=== PATIENT | male | born 1945 | race Caucasian/White ===

== ENCOUNTER 2023-04-20 13:22 | Inpatient (IN) | payer MEDICARE, MEDICAID ==
[2023-04-20 13:45] LABS: BASOPHILS ABSOLUTE AUTO 0.07 10^3/uL (0.00-0.50); BASOPHILS PERCENT AUTO 0.5 % (0-1); EOSINOPHILS ABSOLUTE AUTO 0.61 10^3/uL (0.00-1.50); EOSINOPHILS PERCENT AUTO 4.6 % (0-6); HEMATOCRIT 36.8 % (42.0-52.0); HEMOGLOBIN 12.5 g/dL (14.0-18.0); IMMATURE GRAN ABSOLUTE AUTO 0.04 10^3/uL (0.00-0.49); IMMATURE GRAN PERCENT AUTO 0.3 % (0.0-4.9); LYMPHOCYTES PERCENT AUTO 10.5 % (24-44); MEAN CORPUSCULAR HEMOGLOBIN 31.6 pg (27.0-32.0); MEAN CORPUSCULAR VOLUME 92.9 fL (83.0-97.0); MONOCYTES PERCENT AUTO 5.3 % (0-10); NEUTROPHILS ABSOLUTE AUTO 10.47 x10^3/uL (1.80-8.00); NEUTROPHILS PERCENT AUTO 78.8 % (41-71); PLATELET COUNT,PLT 462 10^3/uL (150-400); RED BLOOD CELL COUNT 3.96 x10^6/uL (4.50-6.00); WHITE BLOOD CELL COUNT,WBC 13.3 10^3/uL (4.0-11.0)
[2023-04-20 14:18] LABS: BLOOD UREA NITROGEN,BUN 22 mg/dL (7-18); C-REACTIVE PROTEIN 2.02 mg/dL (<=0.50); CARBON DIOXIDE,CO2 31 mmol/L (21-32); CHLORIDE,CL 100 mEq/L (98-106); CREATININE 0.8 mg/dL (0.7-1.3); ESTIMATED GFR 92 mL/min (>=60); GLUCOSE RANDOM 159 mg/dL (75-99); POTASSIUM,K 3.7 mEq/L (3.5-5.0); SODIUM,NA 139 mEq/L (136-145)
[2023-04-20] MEDS ORDERED: Ondansetron 4 MG Tab.DIS PO PRN (14:44)
[2023-04-20] MEDS ORDERED: Acetaminophen 325 MG Tab PO PRN (14:44)
[2023-04-20] MEDS ORDERED: Polyethylene Glycol 3350 Powder 17 GM Packet PO PRN (14:44)
[2023-04-20] MEDS ORDERED: Docusate Sodium 100 MG Cap PO PRN (14:44)
[2023-04-20] MEDS ORDERED: Acetaminophen 650 MG Supp RECTAL PRN (14:44)
[2023-04-20] MEDS ORDERED: Ondansetron 4 MG/2 ML SDV IV PRN (14:44)
[2023-04-20] MEDS ORDERED: Piperacillin/Tazobactam 4.5 GM in Sodium Chloride 0.9% 100 ML IV ONE (14:50)
[2023-04-20] MEDS ORDERED: Albuterol/Ipratropium 3.0-0.5 MG/3 ML Neb Soln NEB PRN (14:50)
[2023-04-20] MEDS ORDERED: Sodium Chloride 0.9% 1,000 ML IV ONE (15:11)
[2023-04-20] MEDS: Albuterol/Ipratropium 3.0-0.5 MG/3 ML Neb Soln NEB SCH ×2 (15:41→19:18)
[2023-04-20] MEDS: Furosemide 40 MG Tab PO SCH (16:05)
[2023-04-20] MEDS ORDERED: Bisacodyl 10 MG Supp RECTAL PRN (17:39)
[2023-04-20] MEDS ORDERED: Sennosides 8.6 MG Tab PO PRN (17:39)
[2023-04-20] MEDS: glipiZIDE 5 MG Tab PO SCH (18:47)
[2023-04-20] MEDS: Tamsulosin 0.4 MG Cap.ER PO SCH (19:17)
[2023-04-20] MEDS: amLODIPine 2.5 MG Tab PO SCH (19:17)
[2023-04-20] MEDS: risperiDONE 1 MG Tab PO SCH (19:17)
[2023-04-20] MEDS: Gabapentin 300 MG Cap PO SCH (19:17)
[2023-04-20] MEDS: atorvaSTATin 20 MG Tab PO SCH (19:17)
[2023-04-20] MEDS: Piperacillin/Tazobactam 4.5 GM in Sodium Chloride 0.9% 100 ML IV SCH (19:18)
[2023-04-20] MEDS: Metoprolol Succinate 25 MG Tab.ER PO SCH (19:18)
[2023-04-20] MEDS: Famotidine 20 MG Tab PO SCH (19:18)
[2023-04-20] MEDS: Acetaminophen 325 MG Tab PO SCH (21:54)
[2023-04-21] MEDS: Piperacillin/Tazobactam 4.5 GM in Sodium Chloride 0.9% 100 ML IV SCH ×3 (03:31→21:10)
[2023-04-21] MEDS: Acetaminophen 325 MG Tab PO SCH ×3 (05:43→21:14)
[2023-04-21 07:13] LABS: BASOPHILS ABSOLUTE AUTO 0.04 10^3/uL (0.00-0.50); BASOPHILS PERCENT AUTO 0.4 % (0-1); EOSINOPHILS ABSOLUTE AUTO 0.53 10^3/uL (0.00-1.50); EOSINOPHILS PERCENT AUTO 5.4 % (0-6); HEMOGLOBIN 10.7 g/dL (14.0-18.0); IMMATURE GRAN ABSOLUTE AUTO 0.03 10^3/uL (0.00-0.49); IMMATURE GRAN PERCENT AUTO 0.3 % (0.0-4.9); LYMPHOCYTES ABSOLUTE AUTO 1.13 10^3/uL (0.60-5.00); LYMPHOCYTES PERCENT AUTO 11.5 % (24-44); MEAN CORPUSCULAR HEMOGLOBIN 31.3 pg (27.0-32.0); MEAN CORPUSCULAR HGB CONC 33.4 g/dL (32.0-36.0); MEAN CORPUSCULAR VOLUME 93.6 fL (83.0-97.0); MONOCYTES ABSOLUTE AUTO 0.64 10^3/uL (0.00-1.50); MONOCYTES PERCENT AUTO 6.5 % (0-10); NEUTROPHILS ABSOLUTE AUTO 7.44 x10^3/uL (1.80-8.00); NEUTROPHILS PERCENT AUTO 75.9 % (41-71); PLATELET COUNT,PLT 387 10^3/uL (150-400); RED BLOOD CELL COUNT 3.42 x10^6/uL (4.50-6.00); WHITE BLOOD CELL COUNT,WBC 9.8 10^3/uL (4.0-11.0)
[2023-04-21 07:23] LABS: BILIRUBIN TOTAL 0.3 mg/dL (0.0-1.0); CALCIUM 8.7 mg/dL (8.4-10.1); EST CRCL DRUG DOSING (CG) 63.39 mL/min; MAGNESIUM 1.6 mg/dL (1.8-2.4); POTASSIUM,K 3.6 mEq/L (3.5-5.0); PROTEIN TOTAL,TP 5.5 g/dL (6.4-8.2)
[2023-04-21] MEDS: risperiDONE 1 MG Tab PO SCH ×2 (07:46→21:15)
[2023-04-21] MEDS: Famotidine 20 MG Tab PO SCH ×2 (07:47→21:14)
[2023-04-21] MEDS: metFORMIN 500 MG Tab PO SCH (07:47)
[2023-04-21] MEDS: DULoxetine 30 MG Cap PO SCH (07:47)
[2023-04-21] MEDS: Metoprolol Succinate 25 MG Tab.ER PO SCH ×2 (07:47→21:11)
[2023-04-21] MEDS: glipiZIDE 5 MG Tab PO SCH ×2 (07:47→17:36)
[2023-04-21] MEDS: Gabapentin 300 MG Cap PO SCH ×2 (07:47→21:14)
[2023-04-21] MEDS: Furosemide 40 MG Tab PO SCH (07:47)
[2023-04-21] MEDS: Albuterol/Ipratropium 3.0-0.5 MG/3 ML Neb Soln NEB SCH ×4 (07:48→21:15)
[2023-04-21] MEDS: Vitamin B Complex Cap PO SCH (07:50)
[2023-04-21] MEDS: Cholecalciferol (Vitamin D3) 25 MCG Tab PO SCH (07:50)
[2023-04-21] MEDS ORDERED: Enoxaparin 40 MG/0.4 ML Syringe SUBCUT SCH (12:00)
[2023-04-21] MEDS: atorvaSTATin 20 MG Tab PO SCH (21:11)
[2023-04-21] MEDS: amLODIPine 2.5 MG Tab PO SCH (21:14)
[2023-04-21] MEDS: Tamsulosin 0.4 MG Cap.ER PO SCH (21:15)
[2023-04-22] MEDS: Piperacillin/Tazobactam 4.5 GM in Sodium Chloride 0.9% 100 ML IV SCH (03:20)
[2023-04-22] MEDS: Acetaminophen 325 MG Tab PO SCH (06:28)
[2023-04-22] MEDS: metFORMIN 500 MG Tab PO SCH (07:43)
[2023-04-22] MEDS: risperiDONE 1 MG Tab PO SCH (07:44)
[2023-04-22] MEDS: DULoxetine 30 MG Cap PO SCH (07:44)
[2023-04-22] MEDS: Famotidine 20 MG Tab PO SCH (07:44)
[2023-04-22] MEDS: Gabapentin 300 MG Cap PO SCH (07:44)
[2023-04-22] MEDS: glipiZIDE 5 MG Tab PO SCH (07:44)
[2023-04-22] MEDS: Furosemide 40 MG Tab PO SCH (07:44)
[2023-04-22] MEDS: Metoprolol Succinate 25 MG Tab.ER PO SCH (07:45)
[2023-04-22] MEDS: Albuterol/Ipratropium 3.0-0.5 MG/3 ML Neb Soln NEB SCH (07:45)
[2023-04-22] MEDS: Vitamin B Complex Cap PO SCH (07:45)
[2023-04-22] MEDS: Cholecalciferol (Vitamin D3) 25 MCG Tab PO SCH (07:54)
[2023-04-22 08:02] LABS: BASOPHILS ABSOLUTE AUTO 0.07 10^3/uL (0.00-0.50); BASOPHILS PERCENT AUTO 0.6 % (0-1); EOSINOPHILS ABSOLUTE AUTO 0.67 10^3/uL (0.00-1.50); HEMATOCRIT 34.8 % (42.0-52.0); HEMOGLOBIN 11.6 g/dL (14.0-18.0); IMMATURE GRAN ABSOLUTE AUTO 0.03 10^3/uL (0.00-0.49); IMMATURE GRAN PERCENT AUTO 0.3 % (0.0-4.9); LYMPHOCYTES ABSOLUTE AUTO 1.61 10^3/uL (0.60-5.00); LYMPHOCYTES PERCENT AUTO 14.3 % (24-44); MEAN CORPUSCULAR HEMOGLOBIN 31.4 pg (27.0-32.0); MEAN CORPUSCULAR HGB CONC 33.3 g/dL (32.0-36.0); MEAN CORPUSCULAR VOLUME 94.1 fL (83.0-97.0); MONOCYTES ABSOLUTE AUTO 0.65 10^3/uL (0.00-1.50); MONOCYTES PERCENT AUTO 5.8 % (0-10); NEUTROPHILS ABSOLUTE AUTO 8.21 x10^3/uL (1.80-8.00); PLATELET COUNT,PLT 422 10^3/uL (150-400); WHITE BLOOD CELL COUNT,WBC 11.2 10^3/uL (4.0-11.0)
[2023-04-22 08:31] LABS: CALCIUM 8.9 mg/dL (8.4-10.1); EST CRCL DRUG DOSING (CG) 63.39 mL/min; MAGNESIUM 1.8 mg/dL (1.8-2.4); POTASSIUM,K 3.9 mEq/L (3.5-5.0)
[2023-04-22 13:27] VITALS: BP 124/54; PULSE 72
== END 2023-04-22 11:25 | disposition home or self-care (01) | DRG 193 ==
LOC: CC.FCMC 13:22 → CC.MS 13:22 → UNDOADMIN 14:35 → CC.MS 14:35
PROVIDERS: ADMIT Nurse Practitioner; ATTEND Nurse Practitioner
DX: J18.9 Pneumonia, unspecified organism (principal); L89.154 Pressure ulcer of sacral region, stage 4; I13.0 Hypertensive heart and chronic kidney disease with heart failure and stage 1 through stage 4 chronic kidney disease, or unspecified chronic kidney disease; I25.10 Atherosclerotic heart disease of native coronary artery without angina pectoris; E78.00 Pure hypercholesterolemia, unspecified; I50.9 Heart failure, unspecified; I73.9 Peripheral vascular disease, unspecified; K21.9 Gastro-esophageal reflux disease without esophagitis; N40.0 Benign prostatic hyperplasia without lower urinary tract symptoms; N18.9 Chronic kidney disease, unspecified; M19.90 Unspecified osteoarthritis, unspecified site; E11.40 Type 2 diabetes mellitus with diabetic neuropathy, unspecified; E11.51 Type 2 diabetes mellitus with diabetic peripheral angiopathy without gangrene; F41.9 Anxiety disorder, unspecified; R62.7 Adult failure to thrive; I87.2 Venous insufficiency (chronic) (peripheral); Z11.52 Encounter for screening for COVID-19; Z88.5 Allergy status to narcotic agent; Z91.040 Latex allergy status; Z79.899 Other long term (current) drug therapy; I25.2 Old myocardial infarction; Z85.46 Personal history of malignant neoplasm of prostate; Z95.5 Presence of coronary angioplasty implant and graft; Z98.890 Other specified postprocedural states; Z68.22 Body mass index [BMI] 22.0-22.9, adult
CPT/HCPCS: 36415; 71045; 80048; 80053; 83605; 83735; 83880; 84145; 84484; 85025; 86140; 87040; 87804; 93005; 94640; 97161-GP; A9270-GY; J1650; J2543; J3490; J7620-GY; U0002

== ENCOUNTER 2024-07-13 18:25 | Observation (INO) | payer MEDICARE, MEDICAID ==
[2024-07-13] MEDS: Acetaminophen 325 MG Tab PO ONE (18:56)
[2024-07-13 18:59] LABS: BASOPHILS ABSOLUTE AUTO 0.04 10^3/uL (0.00-0.50); BASOPHILS PERCENT AUTO 0.3 % (0-1); EOSINOPHILS ABSOLUTE AUTO 0.24 10^3/uL (0.00-1.50); EOSINOPHILS PERCENT AUTO 1.7 % (0-6); HEMATOCRIT 41.5 % (42.0-52.0); HEMOGLOBIN 13.8 g/dL (14.0-18.0); IMMATURE GRAN ABSOLUTE AUTO 0.04 10^3/uL (0.00-0.49); IMMATURE GRAN PERCENT AUTO 0.3 % (0.0-4.9); LYMPHOCYTES ABSOLUTE AUTO 0.93 10^3/uL (0.60-5.00); LYMPHOCYTES PERCENT AUTO 6.6 % (24-44); MEAN CORPUSCULAR HEMOGLOBIN 31.8 pg (27.0-32.0); MEAN CORPUSCULAR HGB CONC 33.3 g/dL (32.0-36.0); MEAN CORPUSCULAR VOLUME 95.6 fL (83.0-97.0); MONOCYTES ABSOLUTE AUTO 1.01 10^3/uL (0.00-1.50); MONOCYTES PERCENT AUTO 7.2 % (0-10); NEUTROPHILS ABSOLUTE AUTO 11.83 x10^3/uL (1.80-8.00); NEUTROPHILS PERCENT AUTO 83.9 % (41-71); PLATELET COUNT,PLT 369 10^3/uL (150-400); RED BLOOD CELL COUNT 4.34 x10^6/uL (4.50-6.00); WHITE BLOOD CELL COUNT,WBC 14.1 10^3/uL (4.0-11.0)
[2024-07-13 19:15] LABS: ALBUMIN 3.1 g/dL (3.4-5.0); BILIRUBIN TOTAL 0.4 mg/dL (0.0-1.0); CALCIUM 9.5 mg/dL (8.4-10.1); CREATININE 1.5 mg/dL (0.7-1.3); EST CRCL DRUG DOSING (CG) 41.9 mL/min; POTASSIUM,K 4.8 mEq/L (3.5-5.0); PROTEIN TOTAL,TP 7.4 g/dL (6.4-8.2)
[2024-07-13 19:25] LABS: APPEARANCE,URINE CLEAR (CLEAR); BILIRUBIN,URINE NEGATIVE (NEGATIVE); COLOR,URINE YELLOW (YELLOW); GLUCOSE,URINE 500 mg/dL (NEGATIVE); KETONES,URINE NEGATIVE (NEGATIVE); LEUKOCYTE ESTERASE,URINE NEGATIVE (NEGATIVE); NITRITE,URINE NEGATIVE (NEGATIVE); OCCULT BLOOD,URINE TRACE-INTACT (NEGATIVE); PH,URINE 7.5 (4.5-8.0); PROTEIN,URINE 30 mg/dL (NEGATIVE); UROBILINOGEN,URINE 0.2 EU/dL (0.2-1.0)
[2024-07-13 19:35] LABS: CORONAVIRUS COVID-19 NAA NEGATIVE (NEGATIVE); INFLUENZA A NAA NEGATIVE (NEGATIVE); INFLUENZA B NAA NEGATIVE (NEGATIVE)
[2024-07-13 19:35] LABS: BACTERIA,URINE NOT SEEN /HPF (NOT SEEN); RBC,URINE 0-5 /HPF (0-5); SQUAMOUS EPITHELIAL CELLS,UR FEW /HPF (NOT SEEN); WBC,URINE 0-5 /HPF (0-5)
[2024-07-13] MEDS: Sodium Chloride 0.9% 1,000 ML IV ONE (20:14)
[2024-07-13] MEDS: cefTRIAXone 1 GM Vial IVPUSH ONE (20:14)
[2024-07-13] MEDS ORDERED: Ondansetron 4 MG Tab.DIS PO PRN (21:04)
[2024-07-13] MEDS ORDERED: Ondansetron 4 MG/2 ML SDV IV PRN (21:04)
[2024-07-13] MEDS: Sodium Chloride 0.9% 1,000 ML IV SCH (21:36)
[2024-07-14 07:16] LABS: BASOPHILS ABSOLUTE AUTO 0.04 10^3/uL (0.00-0.50); BASOPHILS PERCENT AUTO 0.4 % (0-1); EOSINOPHILS ABSOLUTE AUTO 0.31 10^3/uL (0.00-1.50); EOSINOPHILS PERCENT AUTO 3.5 % (0-6); HEMATOCRIT 40.4 % (42.0-52.0); HEMOGLOBIN 13.3 g/dL (14.0-18.0); IMMATURE GRAN ABSOLUTE AUTO 0.02 10^3/uL (0.00-0.49); IMMATURE GRAN PERCENT AUTO 0.2 % (0.0-4.9); LYMPHOCYTES ABSOLUTE AUTO 0.89 10^3/uL (0.60-5.00); LYMPHOCYTES PERCENT AUTO 9.9 % (24-44); MEAN CORPUSCULAR HEMOGLOBIN 31.2 pg (27.0-32.0); MEAN CORPUSCULAR HGB CONC 32.9 g/dL (32.0-36.0); MEAN CORPUSCULAR VOLUME 94.8 fL (83.0-97.0); MONOCYTES ABSOLUTE AUTO 0.84 10^3/uL (0.00-1.50); MONOCYTES PERCENT AUTO 9.4 % (0-10); NEUTROPHILS ABSOLUTE AUTO 6.85 x10^3/uL (1.80-8.00); NEUTROPHILS PERCENT AUTO 76.6 % (41-71); PLATELET COUNT,PLT 312 10^3/uL (150-400); RED BLOOD CELL COUNT 4.26 x10^6/uL (4.50-6.00)
[2024-07-14 07:27] LABS: ALBUMIN 2.6 g/dL (3.4-5.0); BILIRUBIN TOTAL 0.4 mg/dL (0.0-1.0); C-REACTIVE PROTEIN 4.34 mg/dL (<=0.50); CALCIUM 9.2 mg/dL (8.4-10.1); CREATININE 1.3 mg/dL (0.7-1.3); EST CRCL DRUG DOSING (CG) 48.34 mL/min; POTASSIUM,K 4.3 mEq/L (3.5-5.0); PROTEIN TOTAL,TP 6.6 g/dL (6.4-8.2)
[2024-07-14] MEDS: Acetaminophen 325 MG Tab PO PRN (09:19)
== END 2024-07-14 14:00 | disposition home or self-care (01) ==
LOC: CC.ED 18:25 → CC.MS 19:30 → UNDOADMOB 19:30 → CC.MS 20:17 → UNDODISOB 07-14 14:00
PROVIDERS: ADMIT Physician Assistant Medical; ATTEND Physician Assistant Medical
DX: R50.83 Postvaccination fever (principal); T50.Z95A Adverse effect of other vaccines and biological substances, initial encounter; E87.20 Acidosis, unspecified; I11.0 Hypertensive heart disease with heart failure; I50.9 Heart failure, unspecified; E11.40 Type 2 diabetes mellitus with diabetic neuropathy, unspecified; E78.00 Pure hypercholesterolemia, unspecified; I25.10 Atherosclerotic heart disease of native coronary artery without angina pectoris; Z95.5 Presence of coronary angioplasty implant and graft; Z79.84 Long term (current) use of oral hypoglycemic drugs; Z79.899 Other long term (current) drug therapy
CPT/HCPCS: 0240U; 36415; 71045; 80053; 81001; 83605; 83735; 84484; 85025; 86140; 87040; 96361; 96374; 99223; 99239; 99285-25; A9270-GY; J0696; J7030

== ENCOUNTER 2024-10-31 10:49 | Emergency (ER) | payer MEDICARE, MEDICAID ==
[2024-10-31 11:07] LABS: BASOPHILS ABSOLUTE AUTO 0.03 10^3/uL (0.00-0.50); BASOPHILS PERCENT AUTO 0.3 % (0-1); EOSINOPHILS ABSOLUTE AUTO 0.55 10^3/uL (0.00-1.50); EOSINOPHILS PERCENT AUTO 4.8 % (0-6); IMMATURE GRAN ABSOLUTE AUTO 0.03 10^3/uL (0.00-0.49); IMMATURE GRAN PERCENT AUTO 0.3 % (0.0-4.9); LYMPHOCYTES ABSOLUTE AUTO 1.32 10^3/uL (0.60-5.00); LYMPHOCYTES PERCENT AUTO 11.6 % (24-44); MONOCYTES ABSOLUTE AUTO 0.58 10^3/uL (0.00-1.50); MONOCYTES PERCENT AUTO 5.1 % (0-10); NEUTROPHILS ABSOLUTE AUTO 8.90 x10^3/uL (1.80-8.00); NEUTROPHILS PERCENT AUTO 77.9 % (41-71); PLATELET COUNT,PLT 324 10^3/uL (150-400); RED BLOOD CELL COUNT 4.38 x10^6/uL (4.50-6.00); WHITE BLOOD CELL COUNT,WBC 11.4 10^3/uL (4.0-11.0)
[2024-10-31 11:32] LABS: ALANINE AMINOTRANSFERASE,ALT 21.0 U/L (12-78); ASPARTATE AMNIOTRANSFERASE,AST 10.0 U/L (15-37); BILIRUBIN TOTAL 0.3 mg/dL (0.0-1.0); BLOOD UREA NITROGEN,BUN 21.0 mg/dL (7-18); CARBON DIOXIDE,CO2 30.0 mmol/L (21-32); CHLORIDE,CL 100.0 mEq/L (98-106); CREATININE 1.5 mg/dL (0.7-1.3); EST CRCL DRUG DOSING (CG) 41.24 mL/min; GLUCOSE RANDOM 205.0 mg/dL (75-99); POTASSIUM,K 4.0 mEq/L (3.5-5.0); PRO B-TYPE NATRIUR PEPT,BNPPRO 521.0 pg/mL (0-1000); PROTEIN TOTAL,TP 6.6 g/dL (6.4-8.2); SODIUM,NA 138.0 mEq/L (136-145)
[2024-10-31 11:34] LABS: ESTIMATED GFR 48.0 mL/min (>=60)
[2024-10-31] MEDS: Iopamidol 755 Mg/ML 100 ML Bottle IVPUSH ONE (11:54)
[2024-10-31 12:47] LABS: APPEARANCE,URINE CLEAR (CLEAR); GLUCOSE,URINE NEGATIVE (NEGATIVE); OCCULT BLOOD,URINE TRACE-INTACT (NEGATIVE)
[2024-10-31 13:08] LABS: SQUAMOUS EPITHELIAL CELLS,UR FEW /HPF (NOT SEEN)
[2024-10-31] MEDS: Alum Hydrox/Mag Hydrox/Simeth 30 ML, Lidocaine 2% 15 ML PO ONE (14:28)
== END 2024-10-31 16:55 | disposition home or self-care (01) ==
LOC: CC.ED 10:49
DX: B02.9 Zoster without complications (principal); N30.00 Acute cystitis without hematuria; I13.0 Hypertensive heart and chronic kidney disease with heart failure and stage 1 through stage 4 chronic kidney disease, or unspecified chronic kidney disease; N18.9 Chronic kidney disease, unspecified; I50.9 Heart failure, unspecified; I25.10 Atherosclerotic heart disease of native coronary artery without angina pectoris; E78.00 Pure hypercholesterolemia, unspecified; I25.2 Old myocardial infarction; K21.9 Gastro-esophageal reflux disease without esophagitis; E11.22 Type 2 diabetes mellitus with diabetic chronic kidney disease; E11.40 Type 2 diabetes mellitus with diabetic neuropathy, unspecified; Z88.5 Allergy status to narcotic agent; Z91.018 Allergy to other foods; Z91.040 Latex allergy status; Z79.899 Other long term (current) drug therapy; Z79.4 Long term (current) use of insulin; Z79.51 Long term (current) use of inhaled steroids
CPT/HCPCS: 36415; 70450; 71045; 71275; 74174; 80053; 81001; 82947; 83735; 83880; 84484; 85025; 85730; 86140; 87086; 87088; 87186; 93005; 93010; 96361; 96374; 96375; 99284; 99285; A9270; J0696; J2270; J7040; Q9967